=== PATIENT | female | born 1955 | race Caucasian/White ===

== ENCOUNTER → 2016-05-20 | Outpatient (CLI) | payer OTHER ==
[~2016-05-20] MED LIST: ANAS1TAB7 PO; ASPI-860 PO; CHOL200025 PO; CYCL10TA45 PO; GUAI1TBM14 PO; IBP200T PO; LEVO150T PO; MECL-115 PO; MG T1TAB PO; MULT-351 PO; NF-TYLARTH PO
== END ==
LOC: RT 12:40
PROVIDERS: ATTEND Internal Medicine
DX: R06.09 Other forms of dyspnea (principal); R00.2 Palpitations
CPT/HCPCS: 93005

== ENCOUNTER → 2016-07-06 | Outpatient (CLI) | payer OTHER ==
[~2016-07-06] MED LIST changes: +AMOX1TAB12 PO
[2016-07-06 20:14] VITALS: BP 140/78
--- NOTE | 2016-07-06 20:14 | Urgent Care T Sheet Gen (E) ---
Intake General Temperature (Fahrenheit): 98.6 Pulse: 92 Blood Pressure Systolic: 140 Blood Pressure Diastolic: 78 Respirations: 19 SPO2: 96 Chief Complaint: UC Ear/Nose/Throat Complaint Description of Symptoms 60 year old female presents with right ear pain and a funny feeling in right ear. States she has had URI sx x 2 weeks which she attributed to seasonal allergies. States ear pain started this morning. States it keeps popping and feels like something is in there.Deneis fever, chills, or malaise. No facial pain or purulent drainage. Source: Patient Exam Limitations: No limitations History of Present Illness Onset & Duration: Days (1 day for ear, URI sx 2 weeks) Timing: Still present Severity: Moderate Modifying Factors: Medication Associated Symptoms: Cough, Nasal congestion, Sinus congestion Recent Trauma: No Similar Sympotms Previously: No Allergies: Coded Allergies: lidocaine (Verified Allergy, Unknown, 05/20/14) Home Meds Reported Medications Cholecalciferol (Vitamin D3) (Vitamin D3)2,000 Unit Tablet2,000 Unit PO DAILY 05/20/14 Acetaminophen (Tylenol Extended Release)650 Mg Cplt1,300 Mg PO UD 05/20/14 Levothyroxine Sodium (Synthroid)150 Mcg Grausf901 Mcg PO DAILY 05/20/14 Guaifenesin/Dextromethorphan (Mucinex DM ER 1,200-60 mg Tab)1 Each Tbmp.12hr1 Each PO BID 05/20/14 Meclizine HCl 25 Mg Tab.chew25 Mg PO DAILY 05/20/14 Ibuprofen 200 Mg Qcgqer942 Mg PO NEEDED 05/20/14 Mg Trisilicate/Alh/Nahco3/Aa (Gaviscon 80-14.2 mg Tab Chew)1 Each Tab.chew1 Each PO UD 05/20/14 Multivitamin (Daily Vitamin Formula)1 Each Tablet1 Each PO DAILY 05/20/14 Aspirin 81 Mg Tablet.dr81 Mg PO DAILY 05/20/14 Anastrozole 1 Mg Tablet1 Mg PO DAILY 05/20/14 Respiratory Constitutional Symptoms: No Chills, No Diaphoresis, No Fever, No Malaise, No Weakness EENTM: No Eye pain, No Blurred vision, No Eye tearing, Ear painNo Ear discharge, No Nose Pain, Nose CongestionNo Throat pain, No Throat swelling, No Mouth Pain, No Mouth Swelling Respiratory: CoughNo Orthopnea, No Short of breath, No Stridor, No Wheezing Gastrointestinal/Abdominal: No Abdominal pain Musculoskeletal: No Muscle pain, No Muscle stiffness Skin: No Change in color, No Lesions, No Rash Neurological: No Headache All Other Systems Reviewed Remaining Systems: All other systems reviewed with negative findings Past [facility]-[place]-Acl[facility]ws Hx Surgeries/Hospitalizations Hospitalization/Surgery Hx: Hip replacement breast lumpectomy knee bladder support hyst tyroid thyroid tubal wisdom teeth tonsils Respiratory Respiratory History: None Cardiovascular Cardiovascular History: None Neuro/Muscular Neuro/Muscular History: Vertigo/fainting, Visual impairment, Other, see commnent Comment: tinnitis Genitouinary Genitourinary History: None Gastrointestinal GI/Endocrine History: Thyroid disorder, Diarrhea, Constipation, Irritable bowel Diabetes Diabetes: No Integumentary Integumentary History: None Cancer History of Cancer?: Yes Cancer type: breast Physical Exam Physical Exam General Appearance: WD/WN No apparent distress Eyes, Ears, Nose, Throat Ex: TM abnormal (R) (erythema and bulging, distorted landmarks)No Pharyngeal erythema, Other (nasal mucosa mildly inflammed with swollen turbinates) Neck Exam: Non tender Full range of motion Normal inspectionNo Normal thyroid (surgically absent), Lymphadenopathy (right anterior cervical chain) Respiratory Exam: Chest non-tender Lungs clear Normal breath sounds No respiratory distress No accessory muscles used Cardiovascular Exam: Regular rate, rhythm No edema No gallop No JVD No murmur Back Exam: Normal Inspection Skin Exam: Normal color Warm/dry/intact No rashes No embolic lesions Extremity Exam: Non-tender Normal capillary refill No pedal edema No calf tenderness Neurologic/Psychiatric Exam: Oriented times 4 CN's II-X nml No motor deficits No sensory deficits Mood/affect nml Procedures/Interventions Ear Procedure : Location: Right ear Instrument used for removal: Ear curette, Irrigation Progress/Procedure Conclusion removed small amount of cerumen from right ear, small amount remained but too painful for pt to remove. Departure Urgent Care Impression Chief Complaint: UC Ear/Nose/Throat Complaint Impression: Primary Impression: Otitis media Qualified Code: H65.91 - Unspecified nonsuppurative otitis media, right ear Departure Disposition: 01 HOME OR SELF-CARE Additional Disposition Comment Condition: Stable Referrals: Kleber Burkett MD (PCP) Additional Instructions: Advised pt that given persistent URI sx and right otitis media , will treat with Augmentin. Can use Tylenol or Ibuprofen for pain. Advised to increase fluids and rest. Follow up with PCP to ensure resolution. RTC if new onset fever, chills, sx do not improve or any concerns. Scripts Amoxicillin/Clavulanate Potassium (Augmentin 875mg/125mg)1 Each Tablet1 Tab PO BID Infection #14 TAB Ref 0 Prov:YESI TAVARES APRN 07/06/16 End of report . YESI TAVARES APRN July 06, 2016 20:14
== END ==
LOC: MHUC 19:28
PROVIDERS: ATTEND Physician Assistant Surgical
DX: H65.91 Unspecified nonsuppurative otitis media, right ear (principal)
CPT/HCPCS: 99213